=== PATIENT | male | born 2000 | race Caucasian/White ===

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

== ENCOUNTER 2019-02-06 14:14 | Emergency (ER) | payer BC, OTHER ==
[2019-02-06 14:53] VITALS: BP 122/85
--- NOTE | 2019-02-06 15:03 | UC ---
Back Pain HPI - HPI Summary HPI Summary: 18-year-old male presents with complaints of low back pain. 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 States he was ready slightly bent over and the weight pulled him further over and he had sudden onset of low back pain. States pain worsens with any type of movement, bending , or lifting. States he felt a little bit of numbness and tingling in his anterior bilateral upper legs last night that has since resolved. Took ibuprofen 600 mg 1 dose last night with minimal relief in symptoms. Denies extremity weakness, or loss of bowel or bladder control. - History of Current Complaint Chief Complaint: UCBackPain Stated Complaint: WC-LOWER BACK PAIN Time Seen by Provider: 02/06/19 15:00 Hx Obtained From: Patient Pain Intensity: 8 - Allergies/Home Medications Allergies/Adverse Reactions: Allergies Allergy/AdvReac Type Severity Reaction Status Date / Time No Known Allergies Allergy Verified 02/06/19 14:44 PMH/Surg Hx/FS Hx/Imm Hx Previously Healthy: Yes - Denies significant PMH - Surgical History Surgical History: None - Family History Known Family History: Positive: Non-Contributory - Social History Occupation: Employed Full-time Lives: Alone Alcohol Use: None Substance Use Type: None Smoking Status (MU): Never Smoked Tobacco - Immunization History Most Recent Tetanus Shot: 2008 Vaccination Up to Date: Yes Review of Systems All Other Systems Reviewed And Are Negative: Yes Constitutional: Negative: Fever, Chills Skin: Negative: Rash, Bruising Respiratory: Positive: Negative Cardiovascular: Positive: Negative Gastrointestinal: Positive: Negative Genitourinary: Positive: Negative Musculoskeletal: Positive: Other: - See HPI Neurological: Positive: Negative Is Patient Immunocompromised?: No Physical Exam - Summary Physical Exam Summary: GENERAL APPEARANCE: Well developed, well nourished, alert and cooperative, and appears to be in no acute distress. NECK: Neck supple, non-tender. CARDIAC: Normal S1 and S2. No S3, S4 or murmurs. Rhythm is regular. There is no peripheral edema, cyanosis or pallor. Extremities are warm and well perfused. Capillary refill is less than 2 seconds. Peripheral pulses intact. LUNGS: Clear to auscultation without rales, rhonchi, wheezing or diminished breath sounds. ABDOMEN: Positive bowel sounds. Soft, nondistended, nontender. No guarding or rebound. No masses or hepatosplenomegally. MUSKULOSKELETAL: ROM intact to all extremities. No joint erythema or tenderness. Normal muscular development. Normal gait. BACK: Examination of the spine reveals mild midline lumbar spine tenderness without spinal deformity or stepoff. There is also mild bilateral paraspinous soft tissue tenderness with palpation of the lumbar back without muscular spasm. NEUROLOGICAL: Strength and sensation symmetric and intact to bilateral lower extremities. Reflexes 2+ throughout. SKIN: Skin normal color, texture and turgor with no lesions or eruptions. Triage Information Reviewed: Yes Vital Signs: Initial Vital Signs Temp 98.7 F 02/06/19 14:45 Pulse 77 02/06/19 14:45 Resp 17 02/06/19 14:45 BP 122/85 02/06/19 14:45 Pulse Ox 99 02/06/19 14:45 Vital Signs Reviewed: Yes Diagnostics - Radiology No standard instances Radiology Interpretation Completed By: Radiologist Summary of Radiographic Findings: Order Information: LUMBARSACRAL 4+ [facility] Accession Number: [id number] CPT: 85770. Indication: Bilateral lower back pain. Injury yesterday. Comparison: No relevant prior exams available on the [facility] for comparison. Technique: AP, lateral, and oblique views lumbar sacral spine. Report: Alignment is anatomic. No cortical disruption or trabecular impaction to indicate a vertebral body fracture. Oblique views without evidence for spondylolysis. Preserved disc spaces. Unremarkable soft tissue contours. IMPRESSION: #. Negative radiographic exam of the lumbar sacral spine. Back Pain Course/Dx - Course Course Of Treatment: 18-year-old male presents with complaints of low back pain. 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 States he was ready slightly bent over and the weight pulled him further over and he had sudden onset of low back pain. States pain worsens with any type of movement, bending , or lifting. States he felt a little bit of numbness and tingling in his anterior bilateral upper legs last night that has since resolved. Took ibuprofen 600 mg 1 dose last night with minimal relief in symptoms. Denies extremity weakness, or loss of bowel or bladder control. Afebrile. Vital signs stable. Patient had mild midline lumbar spine tenderness without spinal deformity or stepoff. There is also mild bilateral paraspinous soft tissue tenderness with palpation of the lumbar back without muscular spasm. Strength and sensation symmetric and intact to bilateral lower extremities. Reflexes 2+ throughout. Remainder of exam is unremarkable. He should was given naproxen 500 mg PO clinic for pain. X-ray of the lumbosacral spine was negative. Recommending conservative treatment for a lumbar back strain including NSAIDs and heat therapy. Patient is to follow-up with occupational medicine in 3-5 days for reevaluation of symptoms. Anticipatory guidance and warning symptoms were reviewed with the patient. Verbalizes understanding and agrees with plan of care. - Differential Dx/Diagnosis Differential Diagnosis/HQI/PQRI: Herniated Disc, Strain Provider Diagnosis: Low back strain Discharge ED - Sign-Out/Discharge Documenting (check all that apply): Patient Departure All imaging exams completed and their final reports reviewed: No Studies - Discharge Plan Condition: Stable Disposition: HOME Prescriptions: Naproxen [Naproxen 500 mg tab] 500 mg PO BID #30 tablet Patient Education Materials: Acute Low Back Pain (ED) Forms: *Work Release Referrals: Dominic Acosta MD [Primary Care Provider] - Rajendra Mcbride MD [Medical Doctor] - 3 Days (Call for appointment.) Additional Instructions: The x-ray performed in the clinic today showed no evidence of a fracture. Rest as much as possible. It is important with back pain that you remain as active as you can but you should avoid any heavy lifting greater than 10 pounds or any strenuous activity until you are pain free. Apply heat to the affected area for 15-20 minutes at least 4 times a day to help with the pain relax the muscles. Take naproxen 500 mg 1 tablet every 12 hours with food for the next 5 days then may take every 12 hours as needed for pain. You are given a dose of this medication in the clinic at 3:15 PM. Follow up with occupational medicine in 3-5 days for re-evaluation of your symptoms. For an appointment. Seek immediate medical attention if you have severe pain not managed with pain medication, you are unable to walk or bear any weight, develop weakness, numbness, or tingling in the lower extremities, lose control of your bowel or bladder, or have any worsening of symptoms. - Billing Disposition and Condition Condition: STABLE Disposition: Home - Attestation Statements Provider Attestation: I was available for consult. This patient was seen by the JERED. The patient was not presented to, seen by, or examined by me. -[place]
[2019-02-06] MEDS ORDERED: Naproxen TAB* 250 MG PO ONE (15:09)
== END 2019-02-06 16:07 | disposition home or self-care (01) ==
LOC: UCCORT 14:14
DX: S39.012A Strain of muscle, fascia and tendon of lower back, initial encounter (principal); W20.8XXA Other cause of strike by thrown, projected or falling object, initial encounter; Y93.89 Activity, other specified; Y92.89 Other specified places as the place of occurrence of the external cause; Y99.0 Civilian activity done for income or pay
CPT/HCPCS: 72110; 99212; A9270-GY; G0463